=== PATIENT | female | born 1990 | race African-American/Black ===

== ENCOUNTER 2019-11-20 08:10 | Day surgery (SDC) | payer MEDICAID, OTHER ==
[2019-11-20] MEDS ORDERED: PROPOFOL INJ 200 MG/20 ML VIAL IV ONE ×2 (10:20→10:57)
--- NOTE | 2019-11-20 10:49 | Operative Report ---
Operative Report DATE OF SURGERY: 11/20/19 Operative Report: The risk, benefits and alternatives of the procedure including the risk of bleeding, perforation requiring surgery have been explained to the patient in detail and informed consent has been obtained. Patient is taken back to the endoscopy suite and placed in left, lateral decubital position. Timeout was called. Propofol medication is administered. Rectal examination is done which did not reveal any masses, tears or fissures. An Olympus videoscope was introduced into the patient's rectum. Scope was then carefully advanced all the way to the cecum. Intubation of the terminal ileum was done. Scope was then sequentially pulled back via the various segments of the colon including the ascending colon, hepatic flexure, transverse colon, splenic flexure, descending colon finally into the rectosigmoid portions of the colon. Retroflexion maneuver is performed. PREOPERATIVE DIAGNOSIS: Blood in stools, abdominal cramping, change of bowel habit POSTOPERATIVE DIAGNOSIS: Colitis from 0 to 25 cm suggestive of ulcerative colitis biopsies obtained. Terminal ileum was normal. 1 small sessile polyp that was removed via snare polypectomy and retrieved. Larger polyp status post snare polypectomy and removed rule out malignancy. It has a fleshy component to it. OPERATION: Colonoscopy with snare polypectomy. colonoscopy with biopsy SURGEON: LEWIS MANRIQUEZ ANESTHESIA: LMAC TISSUE REMOVED OR ALTERED: As noted above. COMPLICATIONS: None. ESTIMATED BLOOD LOSS: None. INTRAOPERATIVE FINDINGS: As noted above. PROCEDURE: Patient tolerated the procedure well. No immediate postprocedure complications are noted. Patient is discharged in good condition. Discharge date 11/20/2019. Discharge diet: Regular. Discharge activity: Regular. 2 to 3-week follow-up to discuss findings. Patient is instructed to call the office or proceed to the emergency room should there be any further problems or questions. We will wait on pathology. Treat her for ulcerative colitis. Depending on the pathology of the polyp likely needs 1 year surveillance colonoscopy.
[2019-11-20 11:22] VITALS: BP 122/61
== END 2019-11-20 11:34 | disposition home or self-care (01) ==
LOC: END 08:10
PROVIDERS: ATTEND Internal Medicine Gastroenterology
DX: K51.40 Inflammatory polyps of colon without complications (principal); K51.90 Ulcerative colitis, unspecified, without complications; K62.89 Other specified diseases of anus and rectum; K92.1 Melena; F41.9 Anxiety disorder, unspecified; Z68.23 Body mass index [BMI] 23.0-23.9, adult; Z79.1 Long term (current) use of non-steroidal anti-inflammatories (NSAID); Z79.899 Other long term (current) drug therapy
CPT/HCPCS: 45380; 45385; 88305 ×2; 00811; J2704; 811